=== PATIENT | male | born 2000 | race African-American/Black ===

== ENCOUNTER 2023-05-13 03:28 | Emergency (ER) | payer OTHER, SELFPAY ==
--- NOTE | ~2023-05-13 | XR_ITS ---
EXAMINATION: XR HAND, RIGHT CLINICAL INFORMATION: Status post fall COMPARISON: None available. TECHNIQUE: PA, lateral, and oblique views of the right hand. FINDINGS: There is displacement at the fifth PIP joint, with the middle phalanx dorsally displaced with respect to the proximal phalanx. No focal fracture is identified. The remainder the bones appear intact. Remainder the joint spaces appear unremarkable. No abnormal soft tissue calcifications. XR/XR hand RT 2V IMPRESSION: Displacement at the fifth proximal interphalangeal joint, with dorsal displacement of the middle phalanx with respect to the proximal phalanx. No visible acute fracture. Recommend follow-up radiographs, once reduction is done.
[2023-05-13 03:48] VITALS: BP 124/72; PULSE 100; RESP 18; TEMP 37.9; O2SAT 100; BMI 18.2
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
[2023-05-13] MEDS: Morphine Sulfate 10 MG/ML CARTRIDGE IM (06:04)
[2023-05-13] MEDS: Doxycycline Monohydrate 100 MG CAPSULE PO (06:20)
[2023-05-13] MEDS: cephALEXin 500 MG CAPSULE PO (06:20)
[2023-05-13 06:42] VITALS: BP 103/77; PULSE 98; RESP 12; TEMP 37.5; O2SAT 100
[2023-05-13] MEDS: Diphth,Pertus(ACell),Tet Adult 0.5 ML SYRINGE IM (07:06)
[2023-05-13] MEDS: Bacitracin Oint 0.9 GM PACKET 5 APPL TOPICAL (07:44)
== END 2023-05-13 07:44 | disposition home or self-care (01) ==
PROVIDERS: Emergency Provider Internal Medicine
DX: S30.810A Abrasion of lower back and pelvis, initial encounter (principal); S80.211A Abrasion, right knee, initial encounter; S60.417A Abrasion of left little finger, initial encounter; S63.256A Unspecified dislocation of right little finger, initial encounter; V87.8XXA Person injured in other specified noncollision transport accidents involving motor vehicle (traffic), initial encounter; Y93.9 Activity, unspecified; Y92.89 Other specified places as the place of occurrence of the external cause; Y99.9 Unspecified external cause status; Z23 Encounter for immunization
CPT/HCPCS: 26770; 29130; 73120; 90471; 90715; 96372; 99284; J2270

== ENCOUNTER 2024-06-25 19:29 | Emergency (ER) | payer OTHER, SELFPAY ==
--- NOTE | ~2024-06-25 | XR_ITS ---
EXAMINATION: XR CHEST CLINICAL INFORMATION: Right-sided chest pain COMPARISON: None available. TECHNIQUE: Frontal view of the chest was obtained. 9:14 PM FINDINGS: Hazy airspace opacity in the right lung base infrahilar area. This is concerning for pneumonia. No pleural effusion. No pneumothorax. Heart size normal. Cardiac and mediastinal contours are normal. XR/XR chest 1V IMPRESSION: Hazy airspace opacity in the right lung base concerning for pneumonia. Short-term Follow-up PA and lateral chest would be helpful. Electronically signed by: Morgan Riley MD 06/25/2024 10:49 PM EDT
[2024-06-25 19:51] VITALS: BP 97/54; PULSE 90; RESP 18; TEMP 37.2; O2SAT 97; BMI 17.0
--- NOTE | 2024-06-25 19:51 | ED.FEVER ---
HPI - Fever General Chief Complaint: Ear Problems Stated Complaint: fever, ear pain Time Seen by Provider: 06/25/24 20:57 Source: patient Mode of arrival: ambulatory Limitations: no limitations History of Present Illness ED Provider: Dr. Mariel Hernandez HPI Narrative: Patient comes to the emergency room complaining of left-sided ear pain since yesterday. Patient reports fever cough and right-sided chest pain, denies any difficulty breathing. Related Data Previous Rx's ?Medication ?Instructions ?Recorded cephalexin 500 mg capsule 500 mg PO QID 10 days #40 caps 05/13/23 doxycycline hyclate 100 mg tablet 100 mg PO BID #20 tabs 05/13/23 ibuprofen 600 mg tablet 600 mg PO Q6H PRN fever or pain 05/13/23 #30 tabs oxycodone-acetaminophen 5 mg-325 1 tab PO Q6H PRN pain #20 tabs 05/13/23 mg tablet (Percocet) amoxicillin 500 mg-potassium 1 tab PO BID 10 days #20 tabs 06/25/24 clavulanate 125 mg tablet (Augmentin) ibuprofen 600 mg tablet 600 mg PO TID PRN fever or pain 06/25/24 #20 tabs Allergies Allergy/AdvReac Type Severity Reaction Status Date / Time No Known Allergies Allergy Verified 06/25/24 19:55 Review of Systems Review of Systems: Constitutional : No Weight loss, complaining of fever, No Chills, No Night Sweats, No Fatigue, No Malaise ENT/Mouth : No Hearing loss, complaining of left-sided Ear Pain, No Nasal Congestion, No Sinus Pain, No Hoarseness, No sore throat, No Rhinorrhea, No Swallowing Difficulty Eyes: No Eye Pain, No Swelling, No Redness, No Foreign Body, No Discharge, No Vision Changes Cardiovascular : No Chest Pain, No SOB, No Dyspnea on Exertion, No Orthopnea, No Edema, No Palpitations Respiratory : No Cough, No Sputum, No Wheezing, No Smoke Exposure, No Dyspnea Gastrointestinal : No Nausea, No Vomiting, No Diarrhea, No Constipation, No abdominal Pain, No Hematochezia, No Melena Genitourinary : no irregular bleeding, No Dysuria, No Urinary Frequency, No Hematuria, No Urinary Incontinence, No Urgency, No Flank Pain, No Urinary Flow Changes, No Hesitancy Musculoskeletal : No joint pain, No Myalgias, No Joint Swelling Skin : No Skin Lesions, No rash Neuro : No Weakness, No Numbness, No Paresthesias, No Loss of Consciousness, No Dizziness, No Headache Psych : No Anxiety/Panic, No Depression, No SI/HI/AH/VH, No Social Issues, Heme/Lymph: No Bruising, No Bleeding,No Lymphadenopathy Endocrine : No Polyuria, No Polydipsia, No Temperature Intolerance [facility] Social History Social History Advance Directives: No Advance Directives Information Provided: No Do you have a plan to hurt others: No Plan Physical Exam Vital Signs: Vital Signs: Last Vital Signs Temp 98.9 F 06/25/24 19:51 Pulse 90 06/25/24 19:51 Resp 18 06/25/24 19:51 BP 97/54 L 06/25/24 19:51 Pulse Ox 97 06/25/24 19:51 O2 Del Method Room Air 06/25/24 19:51 BMI result Body Mass Index 17.0 Const: Other: Appearance: Alert. Oriented X3. No acute distress. Eyes: Pupils equal, round and reactive to light. ENT: Pharynx normal. Med tympanic membrane and ear canal within normal limits, left ear canal erythematous and erythematous tympanic membrane on the right, whitish discharge, tympanic membrane is not ruptured. No mastoid bone tenderness bilaterally Neck: Normal inspection. Neck supple. No lymph nodes noted. No crepitus CVS: Normal heart rate and rhythm. Pulses normal. Normal S1 and S2 Respiratory: No respiratory distress. Breath sounds normal. No Wheezing. No rales Abdomen: Soft and nontender. No rigidity. No distention. Skin: Skin warm and dry. Normal skin color. Normal skin turgor. Extremities: No lower extremity edema. No Lacerations. No Rash Neuro: Oriented X 3. No motor deficit. No sensory deficit. Moving all extremities. No slurred speech. CN 2 through 12 grossly intact Psych: calm, cooperative, normal affect Course Course Course Narrative: This is a Rapid Medical Exam performed in triage by Yasmeen Bolivar PA-C. Full HPI, ROS and PE to be performed by primary ED provider. 23 yo M presenting to the ED c/o fever (Tmax 104 temporally), left ear pain, cough, MITCHELL, chest discomfort, nausea, vomiting x yesterday. Took Tylenol & Motrin around 3AM. Went to yesterday and was told L ear had something broke. Denies abdominal pain PE: +R TM with erythema and budging. oropharynx WNL. nontoxic appearing Plan: ekg, viral testing Medical Decision Making Medical Decision Making [facility] Narrative: Patient has otitis media in the left ear. Patient received the 1st dose of Augmentin in the ED. Chest x-ray pending Differential Diagnosis Differential Diagnoses: The differential diagnosis associated with the presentation includes (Otitis media, otalgia, URI) Lab Data Labs: Lab Results 06/25/24 Range/Units 20:03 Influenza Type A (PCR) NEGATIVE (Negative) Influenza Type B (PCR) NEGATIVE (Negative) RSV RNA Qual (PCR) NEGATIVE (Negative) SARS-CoV-2 RNA (RT-PCR) NEGATIVE (Negative) Discharge Plan Discharge Clinical Impression: Otitis media Patient Disposition: Home, Self-Care Instructions: Ear Infection (ED) Additional Instructions: Please follow-up with your primary care physician tomorrow. If you have any worsening or new symptoms, please return to the emergency room or call 911 Prescriptions: New amoxicillin-pot clavulanate [Augmentin] 500-125 mg tablet 1 tab PO BID 10 Days Qty: 20 0RF ibuprofen 600 mg tablet 600 mg PO TID PRN (Reason: fever or pain) Qty: 20 0RF No Action oxycodone-acetaminophen [Percocet] 5-325 mg tablet 1 tab PO Q6H PRN (Reason: pain) Qty: 20 0RF Rx Instructions: Partial Fill upon patient request. cephalexin 500 mg capsule 500 mg PO QID 10 Days Qty: 40 0RF ibuprofen 600 mg tablet 600 mg PO Q6H PRN (Reason: fever or pain) Qty: 30 0RF doxycycline hyclate 100 mg tablet 100 mg PO BID Qty: 20 0RF Print Language: Nepalese
--- NOTE | 2024-06-25 19:53 | ECG_ITS ---
Test Reason : CP Blood Pressure : / mmHG Vent. Rate : 091 BPM Atrial Rate : 091 BPM P-R Int : 154 ms QRS Dur : 098 ms QT Int : 350 ms P-R-T Axes : 077 -02 023 degrees QTc Int : 430 ms Normal sinus rhythm Incomplete right bundle branch block Borderline ECG No previous ECGs available Referred By: Yasmeen Bolivar Electronically Signed By:CLAIRE GRANADOS
[2024-06-25 20:45] LABS: Influenza A PCR NEGATIVE (Negative); Influenza B PCR NEGATIVE (Negative); Resp Syncy Virus RNA Qual PCR NEGATIVE (Negative); SARS COV2 PCR INHOUSE NEGATIVE (Negative)
[2024-06-25 21:14] VITALS: PULSE 100; O2SAT 100
[2024-06-25] MEDS: Amoxicillin/Potassium Clav 500 MG TABLET PO (21:16)
--- NOTE | 2024-06-25 21:21 | PC.NURSE ---
pt brought to exam room sts that she was seen at an urgent care earlier today and diagnosed with mono. Pt sts that she feels as though she is having a hard time breathing. pt speaking in full compete sentances SpO2 100% DC 100bpm. pt last took IBU at 1600. pt awaitng provider eval- call gonzales within reach
--- NOTE | 2024-06-25 21:23 | PC.NURSE ---
pt medicated per OCT- CXR obtained pt awaiting results, call gonzales within reach
[2024-06-25 23:15] VITALS: BP 104/58; PULSE 83; RESP 18; TEMP 37.1; O2SAT 97
[2024-06-25 23:18] VITALS: BP 104/58; PULSE 83; RESP 18; TEMP 37.1; O2SAT 97
== END 2024-06-25 23:25 | disposition home or self-care (01) ==
PROVIDERS: Physician Assistant; Emergency Provider Emergency Medicine
DX: H66.92 Otitis media, unspecified, left ear (principal); H92.02 Otalgia, left ear; R50.9 Fever, unspecified; R05.9 Cough, unspecified; R07.9 Chest pain, unspecified; Z03.818 Encounter for observation for suspected exposure to other biological agents ruled out
CPT/HCPCS: 0241U; 71045; 93005; 99283; 99284

== ENCOUNTER → 2024-06-25 19:53 | Outpatient (BNV) | payer OTHER, SELFPAY | PROVIDERS: Emergency Provider Emergency Medicine; Visit Provider Internal Medicine | DX: R07.9 Chest pain, unspecified (principal) | CPT/HCPCS: 93010 ==